=== PATIENT | female | born 1960 | race Caucasian/White ===

== ENCOUNTER 2022-02-08 10:33 | Emergency (ER) | payer OTHER ==
[~2022-02-08] VITALS: Ht 157.5 cm; Wt 63.5 kg
[2022-02-08 10:33] VITALS: BP_SYST 178
[2022-02-08] MEDS ORDERED: SOM350 PO (12:36)
[2022-02-08] MEDS ORDERED: IBUP-1969 PO (12:36)
[2022-02-08 12:45] VITALS: BP_SYST 178
== END 2022-02-08 12:45 | disposition home or self-care (01) ==
LOC: SED 10:33
DX: S13.4XXA Sprain of ligaments of cervical spine, initial encounter (principal); S09.90XA Unspecified injury of head, initial encounter; S20.212A Contusion of left front wall of thorax, initial encounter; V29.49XA Motorcycle driver injured in collision with other motor vehicles in traffic accident, initial encounter; Y93.89 Activity, other specified; Y92.89 Other specified places as the place of occurrence of the external cause; Y99.8 Other external cause status
CPT/HCPCS: 70450-TC; 71045; 72125-TC; 76376; 99284